=== PATIENT | female | born 1960 | race Caucasian/White ===

== ENCOUNTER 2016-10-01 13:23 | Emergency (ER) | payer OTHER ==
--- NOTE | 2016-10-01 13:39 | ED CLINICAL REPORT ---
Clinical Report - Physicians/Mid Levels [facility] [address] [place] [address] 10/01/2016 13:25 Patient: MICHELE CURIEL Time Seen: 13:33 Oct 01 2016. Arrived- By private vehicle. Historian- patient. HISTORY OF PRESENT ILLNESS Chief Complaint: SKIN RASH. This started 2 months B[employer] WR[employer] and is still present. (Patient reports recurring history of a rash to her feet. Reports pruritic sensation. Denies any fevers or chills or any tly-oulufwpz-eiqm symptoms. He reports similar rash in the past, rash worsens when she wears shoes, improves with a lotion and when she does not wear shoes. Denies any fevers or chills. Denies any drainage. Denies any trauma. She has not placed anything on the rash recently.). REVIEW OF SYSTEMS No fever, chills, nausea or diarrhea. All systems otherwise negative, except as recorded above. PAST HISTORY Problems: Lifestyle / Substance Problems. Costochondritis. LNMP - Last Normal Menstrual Period. Additional Surgeries: no known surgeries. Medications: None. Allergies: Augmentin. Morphine Sulfate. SOCIAL HISTORY Smoker- current status unknown. No alcohol use or drug use. ADDITIONAL NOTES The nursing notes have been reviewed. PHYSICAL EXAM Vital Signs: 10/01/2016 13:33 BP: 113/77. HR: 90. RR: 18. O2 saturation: 100%. Temp: 97.9 F. Pain level now: 6/10. Neck: Neck supple. No lymphadenopathy. CVS: Normal heart rate and rhythm. Heart sounds normal. Respiratory: No respiratory distress. Breath sounds normal. No wheezes. Skin: Skin warm. Erythema (Mouth pink dorsal erythema of the distal foot, does not involve the nails. No vesicles. No warmth, no swelling. No demarcation, no hypo-or hyperpigmentation.). Neuro: Oriented X 3. PROGRESS AND PROCEDURES Course of Care: Patient with what appears to be shoe related dermatitis, with no plantar involvement. No interdigital involvement. No other rash. No other systemic symptoms, contact roll from her shoes, does not appear fungal in nature for clearing .Does not involve the nails. Does no tappear infectious. Patient is stable. Patient/family counseled. CLINICAL IMPRESSION Mild irritative contact dermatitis. INSTRUCTIONS (use thick based aquaphore or other non scented OTC cream/ lotion avoid socks/ sweaty feet). Prescription Medications: Hydrocortisone 1% cream: apply to affected areas three times daily for 1 week, as needed for itching, until symptoms improve. Dispense sixty (60) grams. Substitution is permissible. Follow-up: Follow up with your doctor in seven days. (Electronically signed by Natalia Arrington P.A.-C 10/01/2016 13:50)
--- NOTE | 2016-10-01 13:39 | ED CLINICAL REPORT ---
Clinical Report - Physicians/Mid Levels [facility] [address] [place] [address] 10/01/2016 13:25 Patient: MICHELE CURIEL Time Seen: 13:33 Oct 01 2016. Arrived- By private vehicle. Historian- patient. HISTORY OF PRESENT ILLNESS Chief Complaint: SKIN RASH. This started 2 months E [employer] and is still present. (Patient reports recurring history of a rash to her feet. Reports pruritic sensation. Denies any fevers or chills or any cws-uxxunwgz-hbgn symptoms. He reports similar rash in the past, rash worsens when she wears shoes, improves with a lotion and when she does not wear shoes. Denies any fevers or chills. Denies any drainage. Denies any trauma. She has not placed anything on the rash recently.). REVIEW OF SYSTEMS No fever, chills, nausea or diarrhea. All systems otherwise negative, except as recorded above. PAST HISTORY Problems: Lifestyle / Substance Problems. Costochondritis. LNMP - Last Normal Menstrual Period. Additional Surgeries: no known surgeries. Medications: None. Allergies: Augmentin. Morphine Sulfate. SOCIAL HISTORY Smoker- current status unknown. No alcohol use or drug use. ADDITIONAL NOTES The nursing notes have been reviewed. PHYSICAL EXAM Vital Signs: 10/01/2016 13:33 BP: 113/77. HR: 90. RR: 18. O2 saturation: 100%. Temp: 97.9 F. Pain level now: 6/10. Neck: Neck supple. No lymphadenopathy. CVS: Normal heart rate and rhythm. Heart sounds normal. Respiratory: No respiratory distress. Breath sounds normal. No wheezes. Skin: Skin warm. Erythema (Mouth pink dorsal erythema of the distal foot, does not involve the nails. No vesicles. No warmth, no swelling. No demarcation, no hypo-or hyperpigmentation.). Neuro: Oriented X 3. PROGRESS AND PROCEDURES Course of Care: Patient with what appears to be shoe related dermatitis, with no plantar involvement. No interdigital involvement. No other rash. No other systemic symptoms, contact roll from her shoes, does not appear fungal in nature for clearing .Does not involve the nails. Does no tappear infectious. Patient is stable. Patient/family counseled. CLINICAL IMPRESSION Mild irritative contact dermatitis. INSTRUCTIONS (use thick based aquaphore or other non scented OTC cream/ lotion avoid socks/ sweaty feet). Prescription Medications: Hydrocortisone 1% cream: apply to affected areas three times daily for 1 week, as needed for itching, until symptoms improve. Dispense sixty (60) grams. Substitution is permissible. Follow-up: Follow up with your doctor in seven days. (Electronically signed by Natalia Arrington P.A.-C 10/01/2016 13:50)
--- NOTE | 2016-10-01 13:39 | ED NURSING NOTES ---
Clinical Report - Nurses [facility] [place] [address] 10/01/2016 13:25 [id number] Triage time 13:33. Acuity: LEVEL 4. Chief Complaint: RIGHT LOWER EXTREMITY REDNESS. LEFT LOWER EXTREMITY REDNESS. 13:34 10/01/16. 13:34 10/01/16. Alert. No acute distress. ORLIN COMA SCORE: Orlin Coma Scale: 15- eyes open spontaneously (4); best verbal response- oriented x 4 (5); best motor response- obeys commands (6). --13:36 Haile Salmeron R.N. 13:33 10/01/16. BP: 113/77. HR: 90. RR: 18. O2 saturation: 100% on room air. Temp: 97.9 F (oral). Pain level now: 11/24. --13:36 Haile Salmeron R.N. Weight: 56.6 kg stated. Height/Length: 61 inches Per Patient. BMI: 23.6. --13:32 Haile Salmeron R.N. Medications None. --13:34 Haile Salmeron R.N. Medication/allergy information source: the patient. --13:36 Haile Salmeron R.N. Allergies Augmentin. Morphine Sulfate. --13:34 Haile Salmeron R.N. History Arrived by private vehicle. Historian: patient. Accompanied by friend. [facility] 13:34 10/01/16. No injury occurred. Treatment PROJECT FACILITATOR: None. PAST MEDICAL HX: Tetanus status: up-to-date. The patient is post-menopausal. Immunizations not up to date. SOCIAL HX: Current every day light tobacco smoker (cigarette)- less than 1/2 a pack per day. No alcohol use or drug use. No infectious disease exposure. ABUSE ASSESSMENT: No report of abuse. FALL RISK ASSESSMENT: Fall risk assessment completed. No fall risk identified. NUTRITIONAL RISK ASSESSMENT: The nutritional risk assessment revealed no deficiencies. FUNCTIONAL ASSESSMENT: Functional assessment: no impairments noted. LEARNING NEEDS ASSESSMENT: The learning needs assessment revealed no barriers. SKIN INTEGRITY ASSESSMENT: Skin integrity risk assessment completed. No skin integrity risk identified. --13:36 Haile Salmeron R.N. PROBLEMS: Lifestyle / Substance Problems. Costochondritis. --13:36 Haile Salmeron R.N. ADDITIONAL SURGERIES: no known surgeries. Assessment 13:34 10/01/16. --13:36 Haile Salmeron R.N. Interventions 13:34 10/01/16. 13:34 10/01/16. ID and allergy band on patient. To treatment room. --13:36 Haile Salmeron R.N. PHYSICAL ASSESSMENT 13:35 10/01/16. Ambulatory to room. GENERAL / NEURO / PSYCH: Oriented X 4. Alert. Appears in no acute distress. EXTREMITIES: Extremity pulses are within normal limits. Neuro-vascular status intact to the extremity. No lower extremity edema. Normal gait. Right foot: erythema. Left foot: erythema. SKIN: Skin is warm and dry. --13:35 Haile Salmeron R.N. NURSING PROGRESS NOTES 13:35 10/01/16. Two patient identifiers checked. Call light placed in reach. Side rails up x 2. Bed placed in lowest position. Brakes of bed on. Patient ready for evaluation- chart flagged and notification provided. --13:35 Haile Salmeron R.N. 13:42 10/01/2016 Benadryl (DiphenhydrAMINE HCl) PO 50 mg given. Allergies verified, confirmed 5 rights and sedative warning given to the patient. --13:42 Haile Salmeron R.N. DISPOSITION / DISCHARGE 13:43 10/01/16. Condition at departure: improved. The goals identified in the patient's plan of care were met. No learning barriers present. Discharge instructions provided and reviewed with the patient. Reviewed warnings. Reviewed medication(s). Treatments reviewed. Patient verbalized understanding. Written instructions provided in Urdu. The patient was discharged by the physician assistant program director. She was discharged home. She left the Emergency Department ambulatory and via private vehicle. Patient driving. FALL RISK ASSESSMENT: Fall risk assessment completed. No fall risk identified. --13:44 Haile Salmeron R.N. 13:33 10/01/16. BP: 113/77. HR: 90. RR: 18. O2 saturation: 100% on room air. Temp: 97.9 F (oral). Pain level now: 11/24. --13:44 Haile Salmeron R.N. 13:44 10/01/16. Departure time: 13:44. --13:44 Haile Salmeron R.N. Locked/Released at 10/01/2016 14:09 by Haile Salmeron R.N.
--- NOTE | 2016-10-01 13:39 | ED NURSING NOTES ---
Clinical Report - Nurses [facility] [place] [address] 10/01/2016 13:25 [id number] TRI[facility] Triage time 13:33. Acuity: LEVEL 4. Chief Complaint: RIGHT LOWER EXTREMITY REDNESS. LEFT LOWER EXTREMITY REDNESS. 13:34 10/01/16. 13:34 10/01/16. Alert. No acute distress. ORLIN COMA SCORE: Orlin Coma Scale: 15- eyes open spontaneously (4); best verbal response- oriented x 4 (5); best motor response- obeys commands (6). --13:36 Haile Salmeron R.N. 13:33 10/01/16. BP: 113/77. HR: 90. RR: 18. O2 saturation: 100% on room air. Temp: 97.9 F (oral). Pain level now: 11/24. --13:36 Haile Salmeron R.N. Weight: 56.6 kg stated. Height/Length: 61 inches Per Patient. BMI: 23.6. --13:32 Haile Salmeron R.N. Medications None. --13:34 Haile Salmeron R.N. Medication/allergy information source: the patient. --13:36 Haile Salmeron R.N. Allergies Augmentin. Morphine Sulfate. --13:34 Haile Salmeron R.N. History Arrived by private vehicle. Historian: patient. Accompanied by friend. [facility] 13:34 10/01/16. No injury occurred. Treatment CRYSTAL EVALUATOR: None. PAST MEDICAL HX: Tetanus status: up-to-date. The patient is post-menopausal. Immunizations not up to date. SOCIAL HX: Current every day light tobacco smoker (cigarette)- less than 1/2 a pack per day. No alcohol use or drug use. No infectious disease exposure. ABUSE ASSESSMENT: No report of abuse. FALL RISK ASSESSMENT: Fall risk assessment completed. No fall risk identified. NUTRITIONAL RISK ASSESSMENT: The nutritional risk assessment revealed no deficiencies. FUNCTIONAL ASSESSMENT: Functional assessment: no impairments noted. LEARNING NEEDS ASSESSMENT: The learning needs assessment revealed no barriers. SKIN INTEGRITY ASSESSMENT: Skin integrity risk assessment completed. No skin integrity risk identified. --13:36 Haile Salmeron R.N. PROBLEMS: Lifestyle / Substance Problems. Costochondritis. --13:36 Haile Salmeron R.N. ADDITIONAL SURGERIES: no known surgeries. Assessment 13:34 10/01/16. --13:36 Haile Salmeron R.N. Interventions 13:34 10/01/16. 13:34 10/01/16. ID and allergy band on patient. To treatment room. --13:36 Haile Salmeron R.N. PHYSICAL ASSESSMENT 13:35 10/01/16. Ambulatory to room. GENERAL / NEURO / PSYCH: Oriented X 4. Alert. Appears in no acute distress. EXTREMITIES: Extremity pulses are within normal limits. Neuro-vascular status intact to the extremity. No lower extremity edema. Normal gait. Right foot: erythema. Left foot: erythema. SKIN: Skin is warm and dry. --13:35 Haile Salmeron R.N. NURSING PROGRESS NOTES 13:35 10/01/16. Two patient identifiers checked. Call light placed in reach. Side rails up x 2. Bed placed in lowest position. Brakes of bed on. Patient ready for evaluation- chart flagged and notification provided. --13:35 Haile Salmeron R.N. 13:42 10/01/2016 Benadryl (DiphenhydrAMINE HCl) PO 50 mg given. Allergies verified, confirmed 5 rights and sedative warning given to the patient. --13:42 Haile Salmeron R.N. DISPOSITION / DISCHARGE 13:43 10/01/16. Condition at departure: improved. The goals identified in the patient's plan of care were met. No learning barriers present. Discharge instructions provided and reviewed with the patient. Reviewed warnings. Reviewed medication(s). Treatments reviewed. Patient verbalized understanding. Written instructions provided in Slovenian. The patient was discharged by the physician orthodontist assistant. She was discharged home. She left the Emergency Department ambulatory and via private vehicle. Patient driving. FALL RISK ASSESSMENT: Fall risk assessment completed. No fall risk identified. --13:44 Haile Salmeron R.N. 13:33 10/01/16. BP: 113/77. HR: 90. RR: 18. O2 saturation: 100% on room air. Temp: 97.9 F (oral). Pain level now: 11/24. --13:44 Haile Salmeron R.N. 13:44 10/01/16. Departure time: 13:44. --13:44 Haile Salmeron R.N. Locked/Released at 10/01/2016 14:09 by Haile Salmeron R.N.
--- NOTE | 2016-10-01 13:39 | ED ORDER SUMMARY ---
..... Patient: MICHELE CURIEL OrderSheet [facility] VisitID: [id number] [address] [place] [address] 56y, F Registration Date/Time: 10/01/2016 ORDER SHEET Weight: 56.6 kg (stated) Allergies: Augmentin, Morphine Sulfate GENERAL ORDERS: MEDICATION ORDERS: Benadryl PO 50 mg (NOW) (13:38 10/01/2016 Dalila Rodriguez) (13:42 Le Garcia) IV FLUIDS: ORDER SHEET NOTES: [Electronically signed by Natalia Arrington P.A.-C (13:50 10/01/2016)] [Electronically signed by Haile Salmeron R.N. (14:09 10/01/2016)] [Electronically locked/signed by Haile Salmeron R.N. (14:09 10/01/2016)]
--- NOTE | 2016-10-01 13:39 | ED ORDER SUMMARY ---
..... Patient: MICHELE CURIEL OrderSheet [facility] VisitID: [id number] [address] [place] [address] 56y, F Registration Date/Time: 10/01/2016 ORDER SHEET Weight: 56.6 kg (stated) Allergies: Augmentin, Morphine Sulfate GENERAL ORDERS: MEDICATION ORDERS: Benadryl PO 50 mg (NOW) (13:38 10/01/2016 Dalila Rodriguez) (13:42 Le Garcia) IV FLUIDS: ORDER SHEET NOTES: [Electronically signed by Natalia Arrington P.A.-C (13:50 10/01/2016)] [Electronically signed by Haile Salmeron R.N. (14:09 10/01/2016)] [Electronically locked/signed by Haile Salmeron R.N. (14:09 10/01/2016)]
--- NOTE | 2016-10-01 14:10 | ED MAR SUMMARY ---
..... Medication Administration Record [facility] [address] [place] [address] Patient: MICHELE CURIEL Visit ID: [id number] 56y, F Weight: 56.6 kg Height/Length: 61 in BMI: 23.6 ALLERGIES: Augmentin, Morphine Sulfate Given 13:42 10/01/2016 Haile Salmeron R.N. Medication Administered: BENADRYL [PO] (DIPHENHYDRAMINE HCL), Dose: 50 mg PO. Medication Ordered: Benadryl PO 50 mg (NOW).
--- NOTE | 2016-10-01 14:10 | ED DISCHARGE INSTRUCTIONS ---
Patient: MICHELE CURIEL General Instructions [facility] VisitID: [id number] [place] [address] 56y, F Registration Date/Time: 10/01/2016 Mild irritative contact dermatitis. INSTRUCTIONS (use thick based aquaphore or other non scented OTC cream/ lotion avoid socks/ sweaty feet). Prescription Medications: Hydrocortisone 1% cream: apply to affected areas three times daily for 1 week, as needed for itching, until symptoms improve. Dispense sixty (60) grams. Substitution is permissible. Follow-up: Follow up with your doctor in seven days. ADDITIONAL INFORMATION Dermatitis (Non-Specific) Dermatitis is an inflammation of the skin. The exact cause of your rash is not certain. However, this rash does not appear to be an infection or contagious illness. Taking care of the rash at home should help relieve your symptoms. Home Care: Keep the areas of rash clean by washing it daily. This also helps to keep the skin moist. Use a neutral pH soap such as Dove or Lever 2000. Apply a moisturizing lotion after bathing to prevent dry skin. Avoid skin irritants (wool or silk clothing, grease, oils, some medicines, harsh soaps, and detergents). Wear absorbent, soft fabrics next to the skin rather than rough or scratchy materials. Unless another medicine was prescribed, you may use Hydrocortisone cream (which you can get without a prescription) to reduce the inflammation. Follow Up: Make an appointment with your doctor in the next 1 to 2 weeks if your symptoms do not improve with the above measures. Get Prompt Medical Attention if any of the following occur: Increasing area of redness or pain in the skin Yellow crusts or drainage from the rash Joint pain New rash that appears in other areas of the body Fever of 100.4F (38C) or higher, or as directed by your healthcare provider You have been given the following additional information: Dermatitis, Non-Specific (Electronically signed by Natalia Arrington P.A.-C 10/01/2016 13:50)
--- NOTE | 2016-10-01 14:10 | ED MED RECONCILIATION SUMMARY ---
Patient: MICHELE CURIEL Medication Reconciliation Report [facility] VisitID: [id number] [address] [place] [address] 56y, F Registration Date/Time: 10/01/2016 Weight: 56.6 kg Height/Length: 61 in. BMI: 23.6 ALLERGIES: Augmentin, Morphine Sulfate The patient's Home Medications are listed below: NONE. The source(s) of the original Home Medication information: patient The following Medications were given to the patient in the Emergency Department: Benadryl [PO] PO 50 mg, administered: 10/01/2016 1:42:00 PM The following Medications were prescribed to the patient: Hydrocortisone 1% cream: apply to affected areas three times daily for 1 week, as needed for itching, until symptoms improve. Dispense sixty (60) grams. Substitution is permissible. -- Natalia Arrington, SuzanneAMiguelC
--- NOTE | 2016-10-01 14:10 | ED MAR SUMMARY ---
..... Medication Administration Record [facility] [address] [place] [address] Patient: MICHELE CURIEL Visit ID: [id number] 56y, F Weight: 56.6 kg Height/Length: 61 in BMI: 23.6 ALLERGIES: Augmentin, Morphine Sulfate Given 13:42 10/01/2016 Haile Salmeron R.N. Medication Administered: BENADRYL [PO] (DIPHENHYDRAMINE HCL), Dose: 50 mg PO. Medication Ordered: Benadryl PO 50 mg (NOW).
--- NOTE | 2016-10-01 14:10 | ED MED RECONCILIATION SUMMARY ---
Patient: MICHELE CURIEL Medication Reconciliation Report [facility] VisitID: [id number] [address] [place] [address] 56y, F Registration Date/Time: 10/01/2016 Weight: 56.6 kg Height/Length: 61 in. BMI: 23.6 ALLERGIES: Augmentin, Morphine Sulfate The patient's Home Medications are listed below: NONE. The source(s) of the original Home Medication information: patient The following Medications were given to the patient in the Emergency Department: Benadryl [PO] PO 50 mg, administered: 10/01/2016 1:42:00 PM The following Medications were prescribed to the patient: Hydrocortisone 1% cream: apply to affected areas three times daily for 1 week, as needed for itching, until symptoms improve. Dispense sixty (60) grams. Substitution is permissible. -- Natalia Arrington, SuzanneAMiguelC
--- NOTE | 2016-10-01 14:10 | ED DISCHARGE INSTRUCTIONS ---
Patient: MICHELE CURIEL General Instructions [facility] VisitID: [id number] [place] [address] 56y, F Registration Date/Time: 10/01/2016 Mild irritative contact dermatitis. INSTRUCTIONS (use thick based aquaphore or other non scented OTC cream/ lotion avoid socks/ sweaty feet). Prescription Medications: Hydrocortisone 1% cream: apply to affected areas three times daily for 1 week, as needed for itching, until symptoms improve. Dispense sixty (60) grams. Substitution is permissible. Follow-up: Follow up with your doctor in seven days. ADDITIONAL INFORMATION Dermatitis (Non-Specific) Dermatitis is an inflammation of the skin. The exact cause of your rash is not certain. However, this rash does not appear to be an infection or contagious illness. Taking care of the rash at home should help relieve your symptoms. Home Care: Keep the areas of rash clean by washing it daily. This also helps to keep the skin moist. Use a neutral pH soap such as Dove or Lever 2000. Apply a moisturizing lotion after bathing to prevent dry skin. Avoid skin irritants (wool or silk clothing, grease, oils, some medicines, harsh soaps, and detergents). Wear absorbent, soft fabrics next to the skin rather than rough or scratchy materials. Unless another medicine was prescribed, you may use Hydrocortisone cream (which you can get without a prescription) to reduce the inflammation. Follow Up: Make an appointment with your doctor in the next 1 to 2 weeks if your symptoms do not improve with the above measures. Get Prompt Medical Attention if any of the following occur: Increasing area of redness or pain in the skin Yellow crusts or drainage from the rash Joint pain New rash that appears in other areas of the body Fever of 100.4F (38C) or higher, or as directed by your healthcare provider You have been given the following additional information: Dermatitis, Non-Specific (Electronically signed by Natalia Arrington P.A.-C 10/01/2016 13:50)
== END 2016-10-01 13:44 | disposition home or self-care (01) ==
LOC: ED SRH 13:23
DX: L25.9 Unspecified contact dermatitis, unspecified cause (principal)